=== PATIENT | female | born 1980 | race Caucasian/White ===

== ENCOUNTER 2023-01-25 13:23 | Emergency (ER) | payer BC, OTHER ==
[~2023-01-25] VITALS: Ht 160 cm; Wt 74.8 kg
[2023-01-25 13:43] VITALS: O2SAT 100
[2023-01-25] MEDS ORDERED: OXYC5TAB3 PO (14:16)
[2023-01-25] MEDS ORDERED: HYDROCODONE/APAP 5-325MG TABLET ONE (14:19)
[2023-01-25] MEDS: HYDROCODONE/APAP 5-325MG TABLET PO ONE (14:21)
[2023-01-25] MEDS ORDERED: HYDR-3980 PO (16:17)
== END 2023-01-25 15:51 | disposition home or self-care (01) ==
LOC: ER 13:31
DX: S93.402A Sprain of unspecified ligament of left ankle, initial encounter (principal); Z88.0 Allergy status to penicillin; Z79.899 Other long term (current) drug therapy; X50.1XXA Overexertion from prolonged static or awkward postures, initial encounter; Y93.89 Activity, other specified; Y92.89 Other specified places as the place of occurrence of the external cause; Y99.8 Other external cause status
CPT/HCPCS: 73590; 73610; A4663

== ENCOUNTER 2023-10-11 21:33 | Emergency (ER) | payer BC, OTHER ==
[~2023-10-11] VITALS: Ht 160 cm; Wt 77.1 kg
[2023-10-11] MEDS: ONDANSETRON 4 MG/2 ML VIAL IV ONE (20:25)
[~2023-10-11 21:33] MED LIST: HYDR-3980 PO; OXYC5TAB3 PO
[2023-10-11 21:52] LABS: *BLOOD, URINE 2+ (NEGATIVE); *CLARITY,URINE CLEAR (CLEAR); *COLOR,URINE YELLOW (YELLOW); *KETONES,URINE NEGATIVE (NEGATIVE); *PROTEIN,URINE TRACE (NEGATIVE); *UROBILINOGEN,URINE 0.2 E.U./dl (NORMAL); LEUKOCYTE ESTERASE ,URINE NEGATIVE (NEGATIVE); NITRITE, URINE NEGATIVE (NEGATIVE); PH,URINE 5.5 (5.0-8.0); UGLUCOSE NEGATIVE (NEGATIVE)
[2023-10-11 21:54] LABS: *BILIRUBIN,URIN 1+ (NEGATIVE)
[2023-10-11 21:56] LABS: BACTERIA,URINE 0 /HPF (NONE SEEN); SQUAMOUS EPITHELIAL CELL,UR FEW /HPF (NONE SEEN)
[2023-10-11 21:57] LABS: *URINE HCG, QUAL NEGATIVE (NEGATIVE); YEAST,URINE NONE SEEN /HPF (NONE SEEN)
[2023-10-11 21:59] LABS: WBC,URINE 0-3 /HPF (0-3)
[2023-10-11 22:01] LABS: BASOPHILS % (AUTO) 0.2 % (0.0-2.0); EOSINOPHILS # (AUTO) 0.1 K/uL (0.0-0.7); EOSINOPHILS % (AUTO) 0.9 % (0.0-7.0); HEMATOCRIT 41.9 % (31.2-41.9); HEMOGLOBIN 14.3 g/dL (10.9-14.3); LYMPHOCYTES # (AUTO) 0.8 K/uL (0.8-4.8); LYMPHOCYTES % (AUTO) 11.1 % (20.5-51.5); MEAN CORPUSCULAR HEMOGLOBIN 30.3 uug (24.7-32.8); MEAN CORPUSCULAR HGB CONC 34 g/dL (32.3-35.6); MEAN CORPUSCULAR VOLUME 88.7 fL (75.5-95.3); MONOCYTES # (AUTO) 0.5 K/uL (0.1-1.30); MONOCYTES % (AUTO) 7.4 % (0.0-11.0); NEUTROPHILS # (AUTO) 5.8 K/uL (1.8-8.9); NEUTROPHILS % (AUTO) 80.4 % (38.5-71.5); PLATELET COUNT (AUTO) 225 K/uL (179-408); RED BLOOD CELL COUNT(AUTO) 4.72 MIL/uL (3.63-4.92); RED CELL DISTRIBUTION WIDTH 13.5 % (12.3-17.7); WHITE BLOOD COUNT (AUTO) 7.2 K/uL (3.8-11.8)
[2023-10-11 22:02] LABS: DIFFERENTIAL COMMENT 1
[2023-10-11 22:08] LABS: CREATININE 0.8 mg/dL (0.6-1.3); POTASSIUM 3.7 mmol/L (3.5-5.1)
[2023-10-11] MEDS: IV NORMAL SALINE 500 ML BAG IV ONE (22:10)
[2023-10-11 22:13] LABS: ALBUMIN 3.6 g/dL (3.4-5.0); BILIRUBIN,DIRECT 0.1 mg/dL (0.0-0.2); BILIRUBIN,TOTAL 0.7 mg/dL (0.2-1.0); TOTAL PROTEIN, SERUM 7.2 g/dL (6.4-8.2)
[2023-10-11] MEDS ORDERED: MORPHINE SULFATE 4 MG/1 ML DISP.SYRIN ONE (22:19)
[2023-10-11] MEDS ORDERED: ONDANSETRON 4 MG/2 ML VIAL ONE (22:19)
[2023-10-11] MEDS: MORPHINE SULFATE 4 MG/1 ML DISP.SYRIN IV ONE (22:29)
[2023-10-11] MEDS ORDERED: KETOROLAC TROMETHAMINE 30 MG INJ ONE (22:58)
[2023-10-11] MEDS: KETOROLAC TROMETHAMINE 30 MG INJ IVP ONE (23:00)
[2023-10-11] MEDS: CIPROFLOXACIN HCL 250 MG TABLET PO ONE (23:30)
[2023-10-12] MEDS ORDERED: CIPROFLOXACIN HCL 250 MG TABLET ONE (00:01)
[2023-10-12] MEDS ORDERED: ONDA4TAB11 PO (00:04)
[2023-10-12] MEDS ORDERED: DICY10SO PO (00:04)
[2023-10-12] MEDS ORDERED: CIPR500T5 PO (00:04)
[2023-10-12] MEDS ORDERED: DIPH1TAB PO (00:04)
[2023-10-12] MEDS: CIPROFLOXACIN IV 400 MG in PREMIXED 1 EACH IV ONE (00:13)
[2023-10-12] MEDS ORDERED: DICYCLOMINE HCL 20 MG TABLET ONE (00:15)
[2023-10-12] MEDS ORDERED: DIPHENOXYLATE HCL/ATROP SULF TABLET ONE (00:17)
[2023-10-12] MEDS: DIPHENOXYLATE HCL/ATROP SULF TABLET PO ONE (00:20)
[2023-10-12] MEDS: DICYCLOMINE HCL 10 MG CAPSULE PO STA (00:20)
[2023-10-12 00:32] VITALS: BP 119/73; TEMP 210.7; O2SAT 99
== END 2023-10-12 00:25 | disposition home or self-care (01) ==
LOC: ER 21:36
DX: K52.9 Noninfective gastroenteritis and colitis, unspecified (principal); I88.0 Nonspecific mesenteric lymphadenitis; R10.2 Pelvic and perineal pain; F32.A Depression, unspecified; Z79.899 Other long term (current) drug therapy; Z88.0 Allergy status to penicillin
CPT/HCPCS: 99285; 74176; 96374; 96361; 96375; 80076; 80048; 81001; 84703; 83690; 85025; 87040; 36415; 83605; 87086; J1885; J2405; J7040; J0744; A4606; A4663; J2270

== ENCOUNTER 2023-12-13 23:20 | Emergency (ER) | payer BC ==
[~2023-12-13] VITALS: Ht 160 cm; Wt 77.1 kg
[~2023-12-13 23:20] MED LIST changes: +CIPR500T5 PO; +DICY10SO PO; +DIPH1TAB PO; +ONDA4TAB11 PO
[2023-12-13] MEDS ORDERED: CEFU500T66 PO (23:40)
[2023-12-13] MEDS ORDERED: HYDR-3972 PO (23:40)
[2023-12-13] MEDS ORDERED: TDAP DIPH,PERTUSS,TET VAC/PF 0.5 ML DISP.SYRIN IM ONE (23:42)
[2023-12-13] MEDS: TDAP DIPH,PERTUSS,TET VAC/PF 0.5 ML DISP.SYRIN IM ONE (23:52)
[2023-12-13 23:58] VITALS: BP 134/87; TEMP 99.4; O2SAT 98
== END 2023-12-13 23:50 | disposition home or self-care (01) ==
LOC: ER 23:25
DX: S61.031A Puncture wound without foreign body of right thumb without damage to nail, initial encounter (principal); F32.A Depression, unspecified; Z79.891 Long term (current) use of opiate analgesic; Z60.2 Problems related to living alone; Z88.0 Allergy status to penicillin; W55.01XA Bitten by cat, initial encounter; Y93.89 Activity, other specified; Y92.89 Other specified places as the place of occurrence of the external cause; Y99.8 Other external cause status
CPT/HCPCS: 90715; A4606; A4663

== ENCOUNTER 2024-09-08 11:56 | Emergency (ER) | payer BC ==
[~2024-09-08] VITALS: Ht 160 cm; Wt 80.7 kg
[~2024-09-08 11:56] MED LIST changes: +CEFU500T66 PO; +HYDR-3972 PO
[2024-09-08] MEDS ORDERED: IBUPROFEN 800 MG TABLET ONE (17:28)
[2024-09-08] MEDS: IBUPROFEN 800 MG TABLET PO ONE (17:29)
[2024-09-08] MEDS ORDERED: IBUP-1957 PO (17:34)
[2024-09-08] MEDS ORDERED: TRAM50TA2 PO (17:45)
[2024-09-08 17:59] VITALS: BP 120/76; O2SAT 99
== END 2024-09-08 17:59 | disposition home or self-care (01) ==
LOC: ER 11:56
DX: S40.011A Contusion of right shoulder, initial encounter (principal); M79.621 Pain in right upper arm; F12.90 Cannabis use, unspecified, uncomplicated; Z60.2 Problems related to living alone; F32.A Depression, unspecified; Z88.0 Allergy status to penicillin; W18.2XXA Fall in (into) shower or empty bathtub, initial encounter; Y93.E1 Activity, personal bathing and showering; Y92.89 Other specified places as the place of occurrence of the external cause; Y99.8 Other external cause status
CPT/HCPCS: 73020; 73060; A4606; A4663